=== PATIENT | female | born 2000 ===

== ENCOUNTER 2021-04-04 16:44 | Observation (INO) | payer OTHER ==
[2021-04-04 19:43] LABS: Hematocrit 35.1 % (30.3-42.9); Hemoglobin 11.5 gm/dl (10.1-14.3); Mean Corpuscular HGB Conc 33 % (30-34); Mean Corpuscular Volume 85 fl (79-97); Red Blood Count 4.11 M/mm3 (3.65-5.03); Red Cell Distribution Width 15.2 % (13.2-15.2)
[2021-04-04 19:49] LABS: Platelet Count 218 K/mm3 (140-440)
[2021-04-04 19:53] LABS: Bacteria,Urine 2+ /HPF (Negative); Bilirubin,Urine NEG (Negative); Blood,Urine NEG (Negative); Color,Urine Yellow (Yellow); Mucus,Urine 1+ /HPF; Protein,Urine <15 mg/dL mg/dL (Negative); Urobilinogen,Urine < 2.0 mg/dL (<2.0)
[2021-04-04 20:12] LABS: Alanine Aminotransferase 16 units/L (7-56); Uric Acid 4.4 mg/dL (3.5-7.6)
[2021-04-04 22:39] VITALS: BP 154/83
[2021-04-04] MEDS ORDERED: fentaNYL 100 MCG/2 ML INJ IV PRN (22:53)
[2021-04-04] MEDS ORDERED: ePHEDrine SULFATE 50 MG/1 ML INJ IV PRN (22:53)
[2021-04-04] MEDS ORDERED: LOPERAMIDE 2 MG CAP PO PRN (22:53)
[2021-04-04] MEDS ORDERED: TERBUTALINE 1 MG/1 ML INJ SUB-Q PRN (22:53)
[2021-04-04] MEDS ORDERED: MINERAL OIL 30 ML ORAL LIQD PO PRN (22:53)
[2021-04-04] MEDS ORDERED: CARBOPROST TROMETHAMINE 250 MCG/1 ML INJ IM PRN (22:53)
[2021-04-04] MEDS ORDERED: BUTORPHANOL 2 MG/1 ML INJ IV PRN (22:53)
[2021-04-04] MEDS ORDERED: ACETAMINOPHEN 325 MG TAB PO PRN (22:53)
[2021-04-04] MEDS ORDERED: LIDOCAINE (2%) 20 MG/1 ML VIAL 20 ML MDV INFILTRATI ONE (22:53)
[2021-04-04] MEDS ORDERED: OXYTOCIN DRIP 30 UNITS/500 ML BAG IV SCH (23:00)
[2021-04-04] MEDS ORDERED: miSOPROStol 25 MCG TAB PO SCH (23:00)
[2021-04-04] MEDS ORDERED: LACTATED RINGERS 1,000 ML IV SCH (23:00)
--- NOTE | 2021-04-04 23:08 | History and Physical Report ---
History of Present Illness Date of examination: 04/04/21 Date of admission: 04/04/2021 Chief complaint: Elevated blood pressure History of present illness: 20 y/o at 38-4/7 weeks presents to [facility]BT to R/O pre-eclampsia. Her BP was >140/90 in office. No PEREIRA, diplopia, RUQ pain, or scotomata. BP's were >140/90 in [facility]BT. Pre-eclampsia labs were normal. UPCR did not show proteinuria. The patient will be admitted to L&D for IOL secondary to gHTN. Past History Past Medical History: no pertinent history Past Surgical History: no surgical history Family/Genetic History: none Social history: no significant social history - Obstetrical History Expected Date of Delivery: 04/14/21 Actual Gestation: 38 Week(s) 4 Day(s) : 1 Medications and Allergies Allergies Allergy/AdvReac Type Severity Reaction Status Date / Time No Known Allergies Allergy Verified 01/22/14 07:26 Home Medications Medication Instructions Recorded Confirmed Last Taken Type No Known Home Medications [No 12/28/14 12/28/14 Unknown History Reported Home Medications] Active Meds: Active Medications Acetaminophen (Acetaminophen 325 Mg Tab) 650 mg PO Q4H PRN PRN Reason: Pain, Mild (1-3) Butorphanol Tartrate (Butorphanol 2 Mg/1 Ml Inj) 1 mg IV Q2H PRN PRN Reason: Pain, Moderate(4-6) LABOR PAIN Carboprost Tromethamine (Carboprost Tromethamine 250 Mcg/1 Ml Inj) 250 mcg IM ONCE PRN PRN Reason: Uterine Bleeding Ephedrine Sulfate (Ephedrine Sulfate 50 Mg/1 Ml Inj) 10 mg IV Q2M PRN PRN Reason: Hypotension Fentanyl (Fentanyl 100 Mcg/2 Ml Inj) 100 mcg IV Q2H PRN PRN Reason: Pain,Severe (7-10) LABOR PAIN Lactated Ringer's (Lactated Ringers) 1,000 mls @ 125 mls/hr IV DIRECT DIXIE Oxytocin/Sodium Chloride (Pitocin/Ns 30 Unit/500ml) 30 units in 500 mls @ 40 mls/hr IV TITR DIXIE; Protocol Loperamide HCl (Loperamide 2 Mg Cap) 2 mg PO ONCE PRN PRN Reason: give with Hemabate Mineral Oil (Mineral Oil 30 Ml Oral Liqd) 30 ml PO QHS PRN PRN Reason: Constipation Misoprostol (Misoprostol 25 Mcg Tab) 25 mcg PO ONCE DIXIE Stop: 04/07/21 23:01 Terbutaline Sulfate (Terbutaline 1 Mg/1 Ml Inj) 0.25 mg SUB-Q ONCE PRN PRN Reason: Hyperstimulation/Hypertonicity Review of Systems All systems: negative - Vital Signs Vital signs: Vital Signs Pulse BP 95 H 127/83 04/04/21 18:38 04/04/21 18:38 Temp Pulse Resp BP Pulse Ox 98.7 F 83 20 154/83 99 04/04/21 18:41 04/04/21 22:38 04/04/21 18:41 04/04/21 22:38 04/04/21 22:38 - Physical Exam Breasts: Positive: normal Cardiovascular: Regular rate Lungs: Positive: Normal air movement Abdomen: Positive: normal appearance Genitourinary (Female): Positive: normal external genitalia Vulva: both: normal Vagina: Positive: normal moisture Uterus: Positive: enlarged Adnexa: both: normal Anus/Rectum: Positive: normal perianal skin Extremities: Positive: normal Deep Tendon Reflex Grade: Normal +2 - Obstetrical FHR: category 1 Uterine Contraction Monitor Mode: External Cervical Dilatation: 0.5 station: -3 Uterine Contraction Pattern: Absent Uterine Tone Measurement Phase: Resting Results Result Diagrams: 04/04/21 19:20 04/04/21 19:20 Abnormal lab results 04/04/21 04/04/21 04/04/21 Range/Units 19:00 19:20 19:20 WBC 13.8 H (4.5-11.0) K/mm3 Creatinine (0.6-1.2) mg/dL Lactate Dehydrogenase (91-180) units/L Urine WBC (Auto) 8.0 H (0.0-6.0) /HPF Urine Creatinine 133.0 H (0.1-20.0) mg/dL Urine Total Protein 31 H (5-11.8) mg/dL 04/04/21 Range/Units 19:20 WBC (4.5-11.0) K/mm3 Creatinine 0.5 L (0.6-1.2) mg/dL Lactate Dehydrogenase 332 H (91-180) units/L Urine WBC (Auto) (0.0-6.0) /HPF Urine Creatinine (0.1-20.0) mg/dL Urine Total Protein (5-11.8) mg/dL All other labs normal. Ultrasound: pending Assessment and Plan - Patient Problems (1) 38 weeks gestation of Current Visit: Yes Status: Acute Plan to address problem: care is up-to-date. GBS (-) per patient. (2) Gestational [-induced] hypertension without significant proteinuria, third trimester Current Visit: Yes Status: Acute Plan to address problem: BP's consistently >140/90. No PEREIRA, siplopia, RUQ pain, or scotomata. Urine Protein to Creatinine Ratio (UPCR)= 0.23 Estimated 24 hour urine protein= 260 mg IOL with Cytotec +/- Cook's catheter.
== END 2021-04-04 23:00 | disposition home or self-care (01) ==
LOC: TRG 16:44 → APU 16:59 → TRG 22:53 → APU 22:53
PROVIDERS: ADMIT Obstetrics & Gynecology; ATTEND Obstetrics & Gynecology
DX: O13.3 Gestational [pregnancy-induced] hypertension without significant proteinuria, third trimester (principal); Z3A.38 38 weeks gestation of pregnancy
CPT/HCPCS: 36415; 59025; 81001; 82565; 82570; 83615; 84156; 84450; 84460; 84550; 85027; G0378